=== PATIENT | male | born 1985 | race Two or more races ===

== ENCOUNTER 2021-02-03 06:51 | Emergency (ER) | payer OTHER ==
[~2021-02-03] VITALS: Ht 175.3 cm; Wt 72.6 kg
--- NOTE | 2021-02-03 06:54 | NUR ---
PT AAOX4. BIBEMS C/O TESTICULAR PAIN X3 DAYS. PLACED IN BED 10 ON MONITOR AND PULSE OX. AWAITING ER MD FOR EVAL AND ORDERS.
[2021-02-03] MEDS ORDERED: LORAZEPAM 1 MG TABLET ONE (07:05)
[2021-02-03] MEDS: LORAZEPAM 1 MG TABLET PO ONE (07:08)
--- NOTE | 2021-02-03 07:08 | NUR ---
PT UNABLE TO PROVIDE URINE. PATROL OFFICER AT BEDSIDE.
[2021-02-03 07:24] LABS: BASOPHILS # (AUTO) 0.1 K/uL (0.0-0.2); BASOPHILS % (AUTO) 0.9 % (0.0-2.0); EOSINOPHILS % (AUTO) 1.5 % (0.0-6.0); HEMATOCRIT 39 % (39-51); MEAN CORPUSCULAR HGB CONC 33 g/dl (31.0-36.0); MEAN CORPUSCULAR VOLUME 85 fL (80-96); MONOCYTES # (AUTO) 0.7 K/uL (0.1-1.30); MONOCYTES % (AUTO) 8.4 % (2.0-12.0); NEUTROPHILS # (AUTO) 5.9 K/uL (1.8-8.9); NEUTROPHILS % (AUTO) 66.2 % (43.0-81.0); PLATELET COUNT (AUTO) 505 K/uL (150-450); RED BLOOD CELL COUNT(AUTO) 4.59 MIL/uL (4.5-6.0); WHITE BLOOD COUNT (AUTO) 8.9 K/uL (4.3-11.0)
--- NOTE | 2021-02-03 07:40 | NUR ---
THE PATIENT ALERT AND ORIENTED X3. DENIES PAIN. IN ROOM AIR AND DENIES SOB. RESPIRATION REGULAR AND UNLABORED. ATTACHED TO THE MONITOR.
--- NOTE | 2021-02-03 07:42 | NUR ---
THE PATIENT BACK FROM CT.
[2021-02-03 07:47] LABS: ALANINE AMINOTRANSFERASE 25 U/L (12-78); ALBUMIN 3.7 g/dL (3.4-5.0); ALCOHOL, BLOOD < 3 mg/dL (0-0); ALKALINE PHOSPHATASE 55 U/L (46-116); ASPARTATE AMINOTRANSFERASE 18 U/L (15-37); BILIRUBIN,DIRECT 0.1 mg/dL (0.0-0.2); BILIRUBIN,TOTAL 0.3 mg/dL (0.2-1.0); CALCIUM, SERUM 8.5 mg/dL (8.5-10.1); CARBON DIOXIDE 27 mmol/L (21-32); CHLORIDE 102 mmol/L (98-107); CREATININE 1.2 mg/dL (0.6-1.3); GLUCOSE 96 mg/dL (74-106); POTASSIUM 3.2 mmol/L (3.5-5.1); SODIUM SERUM 139 mmol/L (136-145); TOTAL PROTEIN, SERUM 7.2 g/dL (6.4-8.2)
[2021-02-03 07:59] LABS: UREA NITROGEN, BLOOD 17 mg/dL (7-18)
--- NOTE | 2021-02-03 08:14 | NUR ---
URINE COLLECTED AND SENT TO THE LAB
[2021-02-03 08:35] VITALS: BP 141/77
--- NOTE | 2021-02-03 08:35 | NUR ---
PT. VERBALIZED UNDERSTANDING OF AFTERCARE INSTRUCTIONS.Patient discharged to home in stable condition. Written and verbal after care instructions given. Patient verbalizes understanding of instruction.
[2021-02-03 08:42] LABS: BILIRUBIN,URINE Negative (NEGATIVE); COLOR,URINE YELLOW (YELLOW); LEUKOCYTE ESTERASE ,URINE Negative (NEGATIVE); NITRITE, URINE Negative (NEGATIVE); PROTEIN,URINE 100 mg/dl (NEGATIVE); UGLUCOSE Negative (NEGATIVE); UROBILINOGEN,URINE 0.2 EU/dL (0.2)
[2021-02-03 08:44] LABS: BACTERIA,URINE Rare /HPF (None Seen); SQUAMOUS EPITHELIAL CELL,UR None Seen /HPF (None Seen); WBC,URINE 0-2 /HPF (0-3)
== END 2021-02-03 08:35 | disposition home or self-care (01) ==
LOC: ER 06:52
DX: F15.10 Other stimulant abuse, uncomplicated (principal); F17.200 Nicotine dependence, unspecified, uncomplicated; R00.0 Tachycardia, unspecified; Z88.2 Allergy status to sulfonamides
CPT/HCPCS: 36415; 80048-TC; 80076-TC; 81001; 85025-TC; G0480